=== PATIENT | male | born 1960 | race Caucasian/White ===

== ENCOUNTER 2016-10-29 07:51 | Day surgery (SDC) | payer BC ==
[~2016-10-29 07:51] MED LIST: Lactated Ringers 1,000 ML IV SCH; Sodium Chloride 0.9% 10 ML Syringe FLUSH PRN
[2016-10-29] MEDS ORDERED: fentaNYL 100 MCG/2 ML SDV ONE ×2 (08:35→09:05)
[2016-10-29] MEDS ORDERED: Propofol 200 MG/20 ML SDV ONE ×3 (08:36→09:05)
[2016-10-29] MEDS ORDERED: Midazolam 1 MG/ML 2 ML SDV ONE ×2 (08:36→09:05)
--- NOTE | 2016-10-29 09:09 | PCM.PN ---
- General Info Date of Service: 10/29/16 - Review of Systems Systems Review Comment:: 56 y/o male with history of polyps referred for colonoscopy. He is medically stable to proceed with no significant change to his health status since his last exam. I have discussed the proposed colonoscopy with the patient. He agrees to proceed accepting risks. - Patient Data Vitals - Most Recent: Last Vital Signs Temp 98.5 F 10/29/16 08:25 Pulse 45 L 10/29/16 08:25 Resp 14 10/29/16 08:25 BP 124/70 10/29/16 08:25 Pulse Ox 93 L 10/29/16 08:25 Weight - Most Recent: 97.522 kg Med Orders - Current: Current Medications Lactated Ringer's (Ringers, Lactated) 1,000 mls @ 125 mls/hr IV ASDIRECTED TABATHA Last Admin: 10/29/16 08:36 Dose: 125 mls/hr Sodium Chloride (Saline Flush) 10 ml FLUSH ASDIRECTED PRN PRN Reason: Keep Vein Open Discontinued Medications Fentanyl (Sublimaze) Confirm Administered Dose 100 mcg .ROUTE .STK-MED ONE Stop: 10/29/16 08:36 Midazolam HCl (Versed 1 Mg/Ml) Confirm Administered Dose 2 mg .ROUTE .STK-MED ONE Stop: 10/29/16 08:37 Propofol (Diprivan 20 Ml) Confirm Administered Dose 200 mg .ROUTE .STK-MED ONE Stop: 10/29/16 08:37 Propofol (Diprivan 20 Ml) Confirm Administered Dose 200 mg .ROUTE .STK-MED ONE Stop: 10/29/16 09:00 - Problem List Review Problem List Initiated/Reviewed/Updated: Yes - Assessment Assessment:: History of colon polyps - Plan Plan:: Colonoscopy
--- NOTE | 2016-10-29 09:45 | PCM.OPNOTE ---
- General Post-Op/Procedure Note Date of Surgery/Procedure: 10/29/16 Operative Procedure(s): Colonoscopy with Polypectomy Findings: Small Rectal Polyp Moderate Sigmoid Diverticulosis Pre Op Diagnosis: History of Colon Polyps Post-Op Diagnosis: Colon Polyp. Diverticulosis Anesthesia Technique: MAC Primary Surgeon: Rafi Redd Pathology: Rectal Polyp Output, Urine Amount: 0 EBL in mLs: 1 Complications: None Condition: Good Free Text/Narrative:: Intake & Output 10/28/16 10/29/16 10/29/16 22:59 06:59 14:59 Intake Total 700 Balance 700
[2016-10-29 10:06] VITALS: BP 123/87
--- NOTE | 2016-10-29 12:59 | OR ---
Date of Procedure: 10/29/2016 PREOPERATIVE DIAGNOSIS: History of colon polyps. POSTOPERATIVE DIAGNOSIS: Rectal polyp and diverticulosis. OPERATION PERFORMED: Colonoscopy with polypectomy. INDICATIONS FOR SURGERY: This 56-year-old male has a history of colon polyps. His last colonoscopy was about five years ago and he comes for followup colonoscopy. FINDINGS: The patient had a small polyp in the rectum 2 cm from the anal verge. This is estimated at 4 mm in size and slightly raised. The patient also had a moderate degree of sigmoid diverticulosis, which did not appear to be acutely inflamed. or otherwise complicated The remainder of the colon appeared normal. PROCEDURE IN DETAIL: The patient was taken to the operating room. He was given intravenous sedation and with him in the left lateral decubitus position, digital rectal exam was performed showing no rectal masses. The Olympus colonoscope was inserted into the rectum. Retroflexed examination of the rectal canal is performed. The above-described polyp was identified. It was removed with a cautery snare and retrieved into a polyp trap. The scope was then carefully advanced under direct visualization through the entire length of the colon until cecum is reached. This did require some hand pressure over the abdomen but was eventually able to be safely accomplished. Cecal acquisition is confirmed by noting the normal internal cecal anatomy and including the appendiceal orifice and ileocecal valve. The light was also noted to transilluminate the abdominal wall of the right lower quadrant. After examining the cecum, the scope was slowly withdrawn, sequentially re-examining the colonic segments until the entire colon and rectum had been fully examined. The scope was removed, and the patient was then taken from the operating room in satisfactory condition. ESTIMATED BLOOD LOSS: 1 mL. COMPLICATIONS: None. PROGNOSIS: Good. ADOLFO Redd MD /[id number] FAY
== END 2016-10-29 10:36 | disposition home or self-care (01) ==
LOC: LL.SDS 07:51
PROVIDERS: ATTEND Surgery
DX: Z12.11 Encounter for screening for malignant neoplasm of colon (principal); K62.1 Rectal polyp; K57.30 Diverticulosis of large intestine without perforation or abscess without bleeding; E78.5 Hyperlipidemia, unspecified; Z86.010 Personal history of colon polyps; Z91.030 Bee allergy status; Z79.899 Other long term (current) drug therapy; F17.210 Nicotine dependence, cigarettes, uncomplicated
CPT/HCPCS: 45385; J2250; J2704; J3010; J7120